=== PATIENT | male | born 2000 | race African-American/Black ===

== ENCOUNTER 2021-04-13 11:29 | Emergency (ER) | payer MEDICAID, MEDICARE ==
[~2021-04-13] VITALS: Ht 190.5 cm; Wt 115.0 kg
[2021-04-13] MEDS ORDERED: ACETAMINOPHEN 325MG TABLET PO STA (11:46)
[2021-04-13 14:55] VITALS: BP 135/69
== END 2021-04-13 14:55 | disposition home or self-care (01) ==
LOC: ER 11:29
DX: U07.1 COVID-19 (principal); J45.909 Unspecified asthma, uncomplicated
CPT/HCPCS: 71045; 87426; 99284